=== PATIENT | female | born 1960 ===

== ENCOUNTER 2018-02-09 09:09 | Emergency (ER) | payer BC ==
[2018-02-09 09:34] VITALS: RESP 18
--- NOTE | 2018-02-09 10:37 | C.PDOC ---
History Of Present Illness 57 year old female presents to the ED for evaluation of left paraspinal discomfort for 1-2 months. 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 Admits she has not taken Motrin for the pain or iced the area. Denies fever, numbness, tingling, trauma, falls, and any other associated symptoms. Time Seen by Provider: 02/09/18 10:30 Chief Complaint (Nursing): Back Pain History Per: Patient History/Exam Limitations: no limitations Onset/Duration Of Symptoms: Days (x 1-2 months.) Current Symptoms Are (Timing): Still Present Past Medical History Reviewed: Historical Data, Nursing Documentation, Vital Signs Vital Signs: Last Vital Signs Temp 97.4 F L 02/09/18 09:24 Pulse 60 02/09/18 09:24 Resp 18 02/09/18 09:24 BP 158/82 H 02/09/18 09:24 Pulse Ox 98 02/09/18 09:24 Family History: States: Unknown Family Hx - Social History Hx Alcohol Use: Yes Hx Substance Use: No - Immunization History Hx Tetanus Toxoid Vaccination: No Hx Influenza Vaccination: No Hx Pneumococcal Vaccination: No Review Of Systems Except As Marked, All Systems Reviewed And Found Negative. Constitutional: Negative for: Fever, Other ((-) falls. (-) trauma.) Musculoskeletal: Positive for: Other (left paraspinal discomfort.) Neurological: Negative for: Weakness, Numbness, Incoordination Physical Exam - Physical Exam Appears: Well, Non-toxic, No Acute Distress Skin: Normal Color, Warm, Dry Head: Atraumatic, Normacephalic Eye(s): bilateral: PERRL Neck: Normal ROM, Supple Back: Muscle Spasm (minor muscle strain over the left paraspinal: radiates from the scapula to the lumbar spine.) Neurological/Psych: Oriented x3, Normal Speech, Normal Cognition, Normal Motor, Normal Sensation, Normal Reflexes ED Course And Treatment O2 Sat by Pulse Oximetry: 98 (RA) Pulse Ox Interpretation: Normal Medical Decision Making Medical Decision Making: spinal erector strain/sprain working as Caterer- long hours, odd lifting positions ice/NSAIDS educated Plan: --Motrin. Progress/Update: Patient stable for discharge home. Disposition Doctor Will See Patient In The: Office Counseled Patient/Family Regarding: Studies Performed, Diagnosis - Disposition Referrals: [facility] Coord[facility] [Outside] [facility] [Outside] [facility] [Outside] Disposition: HOME/ ROUTINE Disposition Time: 10:37 Condition: GOOD Additional Instructions: cool shower after work ice packs 1/2 hour per hour, nothing hot motrin 400-600 mg every 6 hours as needed for pain/muscle strain more even lifting techniques @ work Streching exercises BEFORE and AFTER work. Instructions: Muscle Strain Forms: [facility] (Indonesian) - Clinical Impression Clinical Impression: Thoracic back sprain - Scribe Statement The provider has reviewed the documentation as recorded by the Scribe (Brigida Carl) Provider Attestation: All medical record entries made by the Scribe were at my direction and personally dictated by me. I have reviewed the chart and agree that the record accurately reflects my personal performance of the history, physical exam, medical decision making, and the department course for this patient. I have also personally directed, reviewed, and agree with the discharge instructions and disposition.
[2018-02-09 10:45] VITALS: BP 151/79; PULSE 52; TEMP 98.2
[2018-02-09 12:13] VITALS: O2SAT 98
== END 2018-02-09 10:43 | disposition home or self-care (01) ==
LOC: C.ER 09:09
DX: S23.3XXA Sprain of ligaments of thoracic spine, initial encounter (principal); X50.9XXA Other and unspecified overexertion or strenuous movements or postures, initial encounter